=== PATIENT | male | born 1970 | race Caucasian/White ===

== ENCOUNTER 2023-12-04 14:17 | Inpatient (IN) | payer SELFPAY ==
[2023-12-04] VITALS (16 sets, daily range): BP systolic 169–242; BP diastolic 103–200; PULSE 86–132; RESP 14–22; TEMP 37–37.1; O2SAT 95–100; BMI 38.3
--- NOTE | ~2023-12-04 | MR_ITS ---
EXAMINATION: MR brain/brain stem wo/w con DATE: 12/05/2023 11:53 INDICATION: Cerebrovascular accident. TECHNIQUE: Magnetic resonance imaging (MRI) of the brain and brainstem was performed without and with 20 mL MultiHance intravenous contrast. COMPARISON: Head CT 12/04/2023 FINDINGS: There is an acute infarct in the andi on the left. There are are few scattered foci of old hemorrhage in the brain. There are scattered areas of nonspecific increased T2-weighted signal intens ity in the cerebral white matter. There is no abnormal mass lesion. There is an old infarct involving the andi and left middle cerebellar peduncle. The ventricles are normal in size. There is mild mucos al thickening in the paranasal sinuses. The orbits are normal. The mastoid air cells are normal. IMPRESSION: 1. Acute infarct in the andi on the left. 2. Old infarct involving the andi and left middle cerebellar peduncle. 3. Moderate cerebral white matter disease and scattered foci of old microhemorrhage in the brain, con sistent with chronic hypertensive encephalopathy. Reviewed, dictated and finalized at location A. IMPRESSION: 1. Acute infarct in the andi on the left. 2. Old infarct involving the andi and left middle cerebellar peduncle. 3. Moderate cerebral white matter disease and scattered foci of old microhemorr joe in the brain, consistent with chronic hypertensive encephalopathy.
--- NOTE | ~2023-12-04 | XR_ITS ---
EXAMINATION: XR chest 2V Exam Date/Time: 12/04/2023 15:20 CDT HISTORY: cva Comparison: None. RESULT: Lines, tubes, and devices: None. Lungs and pleura: Clear. Cardiomediastinal silhouette: Unremarkable. Other: No acute osseous or upper abdominal finding. IMPRESSION: No acute cardiopulmonary process. Reviewed, dictated and finalized at location K.
--- NOTE | ~2023-12-04 | CT_ITS ---
EXAMINATION: CTA brain carotid DATE: 12/04/2023 15:49 INDICATION: cva TECHNIQUE: Computed tomographic angiography (CTA) of the head was performed without and with 100 mL O mnipaque-350 intravenous contrast. CTA of the neck was performed with intravenous contrast. Automated exposure control and iterative reconstruction technique were employed. The dose-length product was 1 836.72 mGy-cm. Maximum intensity projection and volume rendered 3D-reconstructions were created by alice badillo technologist on a separate workstation. COMPARISON: None. FINDINGS: CT BRAIN: Hypodensity in the left midbrain extending into the left cerebral peduncle and the inferior aspect of the left thalamus. No acute intracranial hemorrhage, mass, or hydrocephalus. Right frontal sinus opa cification, ethmoid mucosal thickening, nodular/polypoid mucosal thickening in the bilateral maxillar y sinuses. CTA HEAD: No large vessel occlusion, aneurysm, high flow vascular malformation, nidus or extravasation. Severe short segment stenosis in the left P1 posterior cerebral artery segment. Basilar dolichoectasia. Bateman nt cerebral veins. CTA NECK: Aortic arch and proximal great vessels: Atherosclerotic calcifications at the visualized aortic arch and proximal great vessels. Right common carotid, carotid bifurcation, and internal carotid artery: Moderate calcification at the bifurcation and proximal right internal carotid artery.There is 15% stenosis of the proximal right i nternal carotid artery relative to normal distal artery lumen diameter (NASCET criteria). Left common carotid, carotid bifurcation, and internal carotid artery: Mild calcification at the bifu rcation.There is 0% stenosis of the proximal left internal carotid artery relative to normal distal a rtery lumen diameter (NASCET criteria). Vertebral arteries: No significant plaque or stenosis. Left vertebral artery is dominant. Other findings: Cervical spondylosis. Atelectasis versus mild edema in the lungs. Mediastinal and lef t cervical lymphadenopathy. IMPRESSION: Findings concerning for focal acute infarct involving the left midbrain, left cerebral peduncle, and inferior left thalamus. Consider MRI of the brain for further evaluation. Short segment severe stenosis in the left P1 EARRINGS FABRICATOR segment. No large vessel intracranial occlusion or a neurysm. No carotid or vertebral artery occlusion, dissection, or significant stenosis. 1.6 cm partially calcified left thyroid nodule, consider outpatient thyroid ultrasound for further ev aluation. Mediastinal and left cervical lymphadenopathy. Reviewed, dictated and finalized at location K. IMPRESSION: Findings concerning for focal acute infarct involving the left midbrain, left c erebral peduncle, and inferior left thalamus. Consider MRI of the brain for fur ther evaluation. Short segment severe stenosis in the left P1 EARRINGS FABRICATOR segment. No large vessel intra cranial occlusion or aneurysm. No carotid or vertebral artery occlusion, dissection, or significant stenosis. 1.6 cm partially calcified left thyroid nodule, consider outpatient thyroid ult rasound for further evaluation. Mediastinal and left cervical lymphadenopathy.
[2023-12-04 14:37] LABS: Glucose Point of Care 86 mg/dl (65-105)
--- NOTE | 2023-12-04 14:44 | ED.NEUROSD ---
HPI - Neuro Symptoms/Deficit General Chief Complaint: Neuro Symptoms/Deficit Stated Complaint: facial droop, slurred speech since Time Seen by Provider: 12/04/23 14:34 History of Present Illness HPI Narrative: Patient is a 53-year-old male who presents ER with stroke-like symptoms. Three days ago he mowed his lawn and then he realized that his right arm was weak. Since then he has had mild slurred speech and facial droop. He went to his in-laws home today and they noticed his symptoms and brought him to the ER to be evaluated. Patient does not have a PCP and does not seek out medical care. He denies any drug use as well as smoking as well as alcohol. No worsening of his symptoms since . Related Data Allergies Allergy/AdvReac Type Severity Reaction Status Date / Time Sulfa (Sulfonamide AdvReac Hives Verified 12/04/23 14:29 Antibiotics) Review of Systems Review of Systems: All systems reviewed & are unremarkable except as noted in HPI and below Constitutional: Constitutional: Reports no additional constitutional complaints ENT: Reports system reviewed and no additional complaints, except as documented Cardiovascular: Cardiovascular: Reports no additional cardiovascular complaints Respiratory: Respiratory: Reports no additional respiratory complaints Gastrointestinal: Gastrointestinal: Reports no additional gastrointestinal complaints Musculoskeletal: Musculoskeletal: Reports no additional musculoskeletal complaints Neurologic: Denies headache(s), Reports focal weakness and Denies numbness Comments: slurred speech PMFSH Past Medical History Medical History (Updated 12/04/23 @ 17:53 by Dung Marinelli MD) Healthy adult male Surgical History Surgical History (Updated 12/04/23 @ 14:57 by Dung Marinelli MD) No history of previous surgery Exam Narrative: GENERAL: Well-appearing, well-nourished, and in no acute distress. HEAD: Normocephalic, atraumatic. EYES: PERRL and EOMI. ENT: Mucous membranes moist. CHEST: Clear to auscultation. No respiratory distress. HEART: Regular rate and rhythm. Normal peripheral pulses. ABDOMEN: Soft, nontender, nondistended. EXTREMITIES: Normal range of motion. No edema. SKIN: Warm, dry, no rash. NEURO: Alert and oriented x3. mild right facial droop, right upper extremity pronator drift as well as mild dysmetria with finger-nose testing. Mild dysarthria. PSYCH: Normal mood and affect. Course Course Emergency Course: Patient and family informed of results. Aggressive blood pressure control with hydralazine 10 mg x 2 and labetalol 10 mg x 1. Discussed case with the adjunct instructor as well as neurology. Patient will be admitted to the hospitalist service. Vital Signs Vital signs: Vital Signs Temperature 98.6 F 12/04/23 14:22 Pulse Rate 98 12/04/23 14:22 Respiratory Rate 16 12/04/23 14:22 Blood Pressure 205/136 H 12/04/23 14:22 Pulse Oximetry 100 12/04/23 14:22 Oxygen Delivery Room Air 12/04/23 14:22 Temperature 98.6 F 12/04/23 14:22 Pulse Rate 101 H 12/04/23 17:31 Respiratory Rate 15 12/04/23 17:01 Blood Pressure 173/118 H 12/04/23 17:31 Pulse Oximetry 95 12/04/23 17:31 Oxygen Delivery Room Air 12/04/23 14:22 MDM - Neuro Symptoms/Deficit Lab Data 12/04/23 14:48 12/04/23 14:48 Labs: Lab Results 12/04/23 12/04/23 Range/Units 14:33 14:48 WBC 8.0 (4.5-10.0) K/mm3 RBC 5.70 (4.6-6.20) M/mm3 Hgb 17.1 (14.0-18.0) g/dL Hct 53.3 H (42.0-52.0) % MCV 93.5 (80-100) fl MCH 30.0 (26-34) pg MCHC 32.1 (32-36) g/dl RDW 13.4 (11.5-14.5) % Plt Count 329 (150-375) k/mm3 MPV 9.5 (7.4-10.4) fl Immature Gran % (Auto) 0.5 (0-0.5) % Neut % (Auto) 69.6 (45.5-73.1) % Lymph % (Auto) 18.4 (18.3-44.2) % Charles % (Auto) 10.5 H (2.6-8.5) % Eos % (Auto) 0.6 (0-4.4) % Baso % (Auto) 0.4 (0.2-1.2) % Lymph #
--- NOTE | 2023-12-04 14:46 | ECG_ITS ---
SEE SCANNED COPY FOR CONFIRMED REPORT. MTDD
[2023-12-04] MEDS: hydrALAZINE HCL 20 MG/ML VIAL 10 MG IV PUSH ×3 (14:52→19:59)
[2023-12-04 14:54] LABS: Basophils Percent Auto 0.4 % (0.2-1.2); Eosinophils Absolute Auto 0.1 K/mm3 (0-0.3); Eosinophils Percent Auto 0.6 % (0-4.4); Hematocrit 53.3 % (42.0-52.0); Hemoglobin 17.1 g/dL (14.0-18.0); Immature Granulocyte Absolute 0.04 K/mm3 (0.00-0.031); Immature Granulocyte Percent A 0.5 % (0-0.5); Lymphocytes Absolute Auto 1.47 K/mm3 (0.9-3.2); Lymphocytes Percent Auto 18.4 % (18.3-44.2); Mean Corpuscular HGB Conc 32.1 g/dl (32-36); Mean Corpuscular Volume 93.5 fl (80-100); Mean Platelet Volume 9.5 fl (7.4-10.4); Monocytes Absolute Auto 0.8 K/mm3 (0.1-0.6); Monocytes Percent Auto 10.5 % (2.6-8.5); Neutrophils Absolute Auto 5.6 K/mm3 (1.3-6.7); Neutrophils Percent Auto 69.6 % (45.5-73.1); Platelet Count Result 329 k/mm3 (150-375); Red Cell Distribution Width 13.4 % (11.5-14.5)
[2023-12-04 15:09] LABS: Alanine Aminotransferase 28 U/L (6-50); Albumin Level 5.4 g/dL (3.5-5.1); Alkaline Phosphatase 68 U/L (38-126); Anion Gap 13 mmol/L (4-12); Aspartate Amino Transferase 31 U/L (17-59); Bilirubin,Total 1.3 mg/dL (0.2-1.3); Blood Urea Nitrogen 16 mg/dL (9-20); Calcium 9.7 mg/dL (8.4-10.2); Carbon Dioxide 26 mmol/L (22-30); Chloride 106 mmol/L (98-107); Estimated CRCL calculation 88 ml/min; Estimated Glomerular Filt Rate > 60; Glucose 95 mg/dL (65-110); Potassium 3.8 mmol/L (3.4-5.0); Prothrombin Time 13.4 Seconds (11.1-14.7); Sodium 145 mmol/L (137-145)
[2023-12-04 15:10] LABS: Partial Thromboplastin Time 26.8 Seconds (22.3-36.8)
[2023-12-04 15:20] LABS: Troponin I < 0.012 ng/mL (0.000-0.034)
[2023-12-04] MEDS: LABETALOL HCL INJ 100 MG/20 ML VIAL 10 MG IV PUSH (16:53)
--- NOTE | 2023-12-04 18:09 | ADMGEN ---
This patient, Chema Guajardo, was admitted to Intensive Care Unit-5 at 1803. Patient/family oriented to hospital policies and general routines including ID bracelet, bed and alarms, visiting hours, pain management, procedures, bathroom and other care routines, personal items, smoking policy, room service/diet, and visiting hours. Information on how to activate the Rapid Response Team has been discussed. Patient/Family are encouraged to report perceived risks to care and to ask questions if they do not understand what they are told or what they should do.
--- NOTE | 2023-12-04 18:27 | PM.IMHP ---
H&P: HPI History of Present Illness Date/Time: 12/04/23 19:10 Chief Complaint: ?Stroke symptoms.? Narrative: This is a pleasant 53-year-old male with no reported medical history who presented to the emergency department via private vehicle for evaluation of ?stroke symptoms.? The patient provides the following history. Tuesday he was working out in the yard when he noticed that his right hand and arm did not seem to be doing what he wanted them to do. He thought perhaps he strained his muscles and he went inside to rest. That evening his friend noticed that his speech seemed to be a slurred which he again attributed to overdoing it while working outside. The symptoms have persisted and when he went to visit his in-laws today they encouraged him to come in for evaluation. He denies headache, vertigo, visual changes, difficulty speaking and swallowing, palpitations, and sensations of racing heart. In the ED: Blood pressures have been as high as 237 over 150. He has been in a sinus rhythm since arrival. CMP and CBC were pretty unremarkable. CT of the head and neck showed findings concerning for focal acute infarcts involving left mid brain, left cerebral peduncle, and inferior left thalamus as well as a short segment of severe stenosis in left P1 AIRCRAFT LANDING GEAR INSPECTOR segment. No large vessel occlusions, dissection, aneurysm or significant stenosis were noted in the carotid, vertebral, or intracranial arteries. Incidentally 1.6 cm partially calcified left thyroid nodule was noted. He was given a total of 20 mg IV hydralazine and 10 mg IV labetalol without much improvement initially however his blood pressure dropped to 169 systolic before rebounding back to 237 systolic. Decision was made to place the patient in the ICU for possible nicardipine drip which could be titrated for a more reliable response. Since that time his blood pressures seem to have improved after receiving another dose of 10 mg IV hydralazine and his systolic blood pressures are now ranging between the 170s to 190s. He complains of a headache at this time which is new. He has no other complaints. Review of Systems Review of Systems: 12 systems were reviewed and are negative except for as per HPI. [facility] Past Medical History Medical History Healthy adult male Surgical History Surgical History No history of previous surgery Family History Family History Father Congestive heart failure Mother Multiple sclerosis Social History Social History Social History: Surrogate medical decision maker: Leeann Choi. Code status: Full code. Smoking status: Never smoker Alcohol intake: current Drinks per week: 3 Substance use: never Do You Feel Safe in your Home?: Yes Lack of Transportation: No Lack of Food: Never True Current Housing: I Do Not Have Housing Concerned About Future Housing: No Difficulty Paying Gas/Electric Bills: No Difficulty Paying for Meds: No Currently Unemployed: No Education: Decline to Answer Difficulty w/ Childcare or Family Care: Decline to Answer Spiritual care concerns: No Meds Home Medications and Allergies Home Medications Medication Instructions Recorded Confirmed Type No Home Medications 12/04/23 12/04/23 History Allergies Allergy/AdvReac Type Severity Reaction Status Date / Time Sulfa (Sulfonamide AdvReac Mild Hives Verified 12/04/23 18:12 Antibiotics) Vital Signs Vital Signs - 24 hr 12/04/23 14:22 12/04/23 15:57 12/04/23 14:58 Temperature 98.6 F Pulse Rate 98 97 111 H Respiratory Rate 16 16 20 Blood Pressure 205/136 H 169/147 H 242/200 H Pulse Oximetry 100 98 100 Oxygen Delivery Room Air 12/04/23 16:27 12/04/23 16:31 12/04/23 16:42 Temperature
--- NOTE | 2023-12-04 18:41 | PC.NURSE ---
Dr. Bailey updated on patient condition, new orders received. Patient and family oriented to room and plan of care.
[2023-12-04 19:44] LABS: MRSA (PCR) NOT DETECTED (NOT DETECTE)
[2023-12-04] MEDS: ACETAMINOPHEN 325 MG TABLET 650 MG PO (21:06)
[2023-12-05] VITALS (18 sets, daily range): BP systolic 148–195; BP diastolic 84–136; PULSE 68–108; RESP 12–20; TEMP 36.2–37.1; O2SAT 97–99
--- NOTE | 2023-12-05 00:12 | ECHO_ITS ---
Patient Info Name: Chema Guajardo Age: 53 years : 1970 Gender: Male Ht: 74 in Wt: 298 lbs BSA: 2.71 m2 HR: 70 bpm Heart Rhythm: Sinus Rhythm Technical Quality: Fair Exam Date: 12/05/2023 8:36 AM Exam Location: Echo Lab Patient Status: Inpatient Admit Date: 12/05/2023 Staff Ordering Physician: Debbie Montesinos PA-C Jig Box Operator: Angela Lema RDCS Attending Provider: Moy Reyes MD Referring Physician: Yamel HARDY; Exam Type: CA echo doppler w bubble study Study Info Indications - Stroke - Hypertensive Emergency Complete two-dimensional, color flow and Doppler transthoracic echocardiogram is performed with agitated saline. Contrast/Agitated Saline Contrast/Ag. Saline: Agitated Saline Amount: 21.00 ml IV Access Condition: patent with no signs of infiltration Summary 1. Left ventricular hypertrophy with hyperdynamic systolic contractility. 2. Grade 1 diastolic noncompliance. 3. No evidence of valvular disease. 4. Saline contrast does not demonstrate any evidence of intracardiac shunting. Left Ventricle Left ventricular chamber dimension is normal. Left ventricular systolic function is hyperdynamic, estimated at >70%. There is moderate concentric increased left ventricular wall thickness. The left ventricular diastolic function is grade I diastolic dysfunction. Right Ventricle Right ventricular chamber dimension is normal. Left Atria Left atrial chamber dimension is normal. Right Atria Right atrial chamber dimension is normal. Atrial Septum Intact interatrial septum visualized by agitated saline imaging. Aortic Valve The aortic valve is normal. Pulmonic Valve The pulmonic valve is not well visualized. Mitral Valve The mitral valve has normal leaflets. Tricuspid Valve The tricuspid valve leaflets are normal. Pericardium/Pleural The pericardium appears normal. Aorta The aortic root size at the sinus of Valsalva is normal. Left Ventricular Outflow Tract Name Value Normal LVOT 2D LVOT Diameter 2.1 cm LVOT Doppler LVOT Peak Gradient 7 mmHg LVOT Mean Gradient 4 mmHg LVOT VTI 23 cm LVOT VTI/AV VTI Ratio 0.9 LVOT Stroke Volume 79 ml LVOT CO 6.4 l/min LVOT CI 2.4 l/min/m2 Pulmonic Valve Name Value Normal RVOT Doppler RVOT Peak Gradient 5 mmHg PV Doppler PV Peak Gradient 9 mmHg Mitral Valve Name Value Normal MV Doppler
[2023-12-05 04:56] LABS: Anion Gap 6 mmol/L (4-12); Blood Urea Nitrogen 17 mg/dL (9-20); Calcium 8.9 mg/dL (8.4-10.2); Carbon Dioxide 25 mmol/L (22-30); Chloride 110 mmol/L (98-107); Cholesterol 221 mg/dL (0-200); Estimated CRCL calculation 93 ml/min; Estimated Glomerular Filt Rate > 60; Glucose 108 mg/dL (65-110); HDL Direct 55 mg/dL; Sodium 141 mmol/L (137-145); Triglycerides 109 mg/dL (<150)
[2023-12-05 05:08] LABS: LDL Cholesterol Direct 131 mg/dL
[2023-12-05 08:27] LABS: Basophils Percent Auto 0.5 % (0.2-1.2); Eosinophils Absolute Auto 0.1 K/mm3 (0-0.3); Eosinophils Percent Auto 1.2 % (0-4.4); Hematocrit 46.5 % (42.0-52.0); Hemoglobin 14.9 g/dL (14.0-18.0); Immature Granulocyte Absolute 0.04 K/mm3 (0.00-0.031); Immature Granulocyte Percent A 0.5 % (0-0.5); Lymphocytes Absolute Auto 1.44 K/mm3 (0.9-3.2); Lymphocytes Percent Auto 17.3 % (18.3-44.2); Mean Corpuscular Hemoglobin 30.2 pg (26-34); Mean Corpuscular Volume 94.1 fl (80-100); Mean Platelet Volume 10.5 fl (7.4-10.4); Monocytes Percent Auto 11.8 % (2.6-8.5); Neutrophils Absolute Auto 5.7 K/mm3 (1.3-6.7); Neutrophils Percent Auto 68.7 % (45.5-73.1); Platelet Count Result 308 k/mm3 (150-375); Red Blood Count 4.94 M/mm3 (4.6-6.20); Red Cell Distribution Width 14.1 % (11.5-14.5); White Blood Count 8.3 K/mm3 (4.5-10.0)
[2023-12-05 08:34] LABS: Magnesium 2.4 mg/dL (1.6-2.3); Phosphorus 4.2 mg/dL (2.5-4.5)
--- NOTE | 2023-12-05 09:11 | WPDCNINT ---
Assessment and Plan Assessment and plan (1) Cerebrovascular accident: Code(s): I63.9 - Cerebral infarction, unspecified Status: Acute Assessment and Plan: Patient presented the ED with complaints of right hand and arm weakness, facial droop along with having some slurring of speech that started on 12/02/2023. Patient had repeated this to Street muscles, and over doing yard work. He was asthma his in-laws to get evaluated in the ER at [facility]. -patient was found to be in hypertensive emergency with blood pressures of 237/150 mmHg -patient was treated with hydralazine and labetalol -CTA head and neck as under -continue aspirin -neurology has been consulted -patient to get an MRI of the brain and brainstem today -lipid panel showed elevated total cholesterol and elevated LDL -continue atorvastatin 12/03: CTA head and neck Findings concerning for focal acute infarct involving the left midbrain, left cerebral peduncle, and inferior left thalamus. Consider MRI of the brain for further evaluation. Short segment severe stenosis in the left P1 TOBACCO STEMMER MACHINE segment. No large vessel intracranial occlusion or aneurysm. No carotid or vertebral artery occlusion, dissection, or significant stenosis. 1.6 cm partially calcified left thyroid nodule, consider outpatient thyroid ultrasound for further evaluation. Mediastinal and left cervical lymphadenopathy. (2) Hypertensive emergency: Code(s): I16.1 - Hypertensive emergency Status: Acute Assessment and Plan: Patient presented with hypertensive emergency is at blood pressures of 237/150 mmHg in the ER, despite treating him with labetalol hydralazine patient's blood pressures remain elevated and patient was transferred to the ICU to be started on nicardipine. Upon arrival to the ICU patient's systolic blood pressures remained under 200, so nicardipine infusion was not started -will maintain SBP 160-180 for now -will add small dose of amlodipine -patient patient does not know if he has history of hypertension, he does not have health insurance so does not see a primary care doctor. - (3) Hyperlipidemia: Code(s): E78.5 - Hyperlipidemia, unspecified Status: Acute Assessment and Plan: Continue statin Plan DVT prophylaxis: SCDs Stress ulcer prophylaxis: Not indicated Nutrition: Heart healthy diet Code Status: Full code Critical Care Time Spent: 47 minutes Due to a high probability of clinically significant, life threatening deterioration, the patient required my highest level of preparedness to intervene emergently and I personally spent this critical care time directly and personally managing the patient. This critical care time included obtaining a history; examining the patient; pulse oximetry; ordering and review of studies; arranging urgent treatment with development of a management plan; evaluation of patient's response to treatment; frequent reassessment; and discussions with other providers. It was exclusive of separately billable procedures and treating other patients and teaching time. Please see Assessment and Plan section and the rest of the note for further information on patient assessment and treatment This dictation may have been done utilizing a voice recognition system. Attempts have been made to correct errors. However, there may be uncorrected grammatical, spelling, and recognitions errors present. Home Health Rn Consult Note Consult date: 12/05/23 Reason for consult: Acute stroke, hypertensive emergency HPI: Chema Guajardo is a 53 year old male healthy individual with no past medical history presented the ED for evaluation of stroke symptoms. 12/02/2023 when he was working out in his yard and notices right hand and arm did not seem to be doing what he wanted them to do. He thought it was probably strained muscle so went inside the house to rest. His friend noticed that his speech seemed slurred which she again attributes to ove
[2023-12-05] MEDS: ACETAMINOPHEN 325 MG TABLET 650 MG PO (09:37)
[2023-12-05] MEDS: amLODIPine BESYLATE 5 MG TABLET PO (09:37)
[2023-12-05] MEDS: ATORVASTATIN 40 MG TABLET 80 MG PO (09:37)
[2023-12-05] MEDS: ASPIRIN 81 MG ENTERIC TABLET PO (09:37)
[2023-12-05] MEDS: hydrALAZINE HCL 20 MG/ML VIAL 10 MG IV PUSH (09:38)
--- NOTE | 2023-12-05 16:36 | PM.IMPN ---
Progress Note: A&P Assessment and Plan (1) Cerebrovascular accident: Code(s): I63.9 - Cerebral infarction, unspecified Status: Acute (2) Hypertensive emergency: Code(s): I16.1 - Hypertensive emergency Status: Acute (3) Left thyroid nodule: Code(s): E04.1 - Nontoxic single thyroid nodule Status: Acute Plan The patient presented to the emergency department for evaluation of stroke-like symptoms including difficulties using the right arm, slurred speech, and right mouth droop since Tuesday. Labs, imaging, EKG, and all reports were personally reviewed. CTA of the head and neck showed 3 areas consistent with infarct. He took aspirin prior to coming to the emergency department . He will be continued on 81 mg aspirin daily along with atorvastatin 80 mg. Lipid profile with LDL 131. Check A1c. Echocardiogram with bubble study with no evidence of intracardiac shunt or thrombus. Grade 1 diastolic dysfunction noted. Neurology consulted . EKG with sinus rhythm continue to monitor telemetry Hypertension significantly elevated likely underlying cause. Permissive hypertension due to acute stroke MRI with pontine stroke. Amlodipine started hydralazine p.r.n. Left thyroid nodule TSH normal workup as an outpatient basis DVT prophylaxis Lovenox Code status full code Subjective Date/time seen: 12/05/23 16:36 Interval history: patient working with therapy this a.m.. Feels better right-sided weakness has improved. No vision problem. Review of Systems Review of Systems: All systems reviewed & are unremarkable except as noted in HPI and below Exam Narrative: General: Pleasant gentleman in no acute distress HEENT:? pupils equal and reactive, sclera is clear, moist oral mucosa Neck:? Supple Respiratory: Clear to auscultation bilaterally, no wheezing, adequate air entry Cardiac:? S1-S2 normal, regular rate and rhythm Abdomen:? Soft, nontender, nondistended, normoactive bowel sounds Extremities:? No edema, palpable pedal pulses Neuro:? Patient is awake, alert, oriented x3, strength 5 out of out of 5 in the bilateral upper extremity and left lower extremity. Right lower extremity strength is 4/5 Skin:? No lesions noted, warm and dry Psych:? Normal mentation and affect Objective Data Vital Signs Vital Signs: Vital Signs - 24 hr 12/04/23 16:42 12/04/23 16:46 12/04/23 17:01 Temperature Pulse Rate 130 H 132 H 101 H Respiratory Rate 20 21 H 15 Blood Pressure 200/138 H 184/148 H 187/136 H Pulse Oximetry 98 96 98 Oxygen Delivery 12/04/23 17:31 12/04/23 18:20 12/04/23 20:00 Temperature 98.7 F Pulse Rate 101 H 86 108 H Respiratory Rate 18 22 H Blood Pressure 173/118 H 184/126 H 194/126 H Pulse Oximetry 95 97 98 Oxygen Delivery 12/04/23 20:00 12/04/23 20:30 12/04/23 20:00 Temperature Pulse Rate 108 H 107 H 106 H Respiratory Rate 19 Blood Pressure 183/110 H Pulse Oximetry 96 97 Oxygen Delivery Room Air 12/04/23 21:00 12/04/23 22:00 12/04/23 22:00 Temperature Pulse Rate 99 99 97 Respiratory Rate 14 Blood Pressure 178/110 H 193/103 H Pulse Oximetry 98 Oxygen Delivery 12/04/23 23:00 12/04/23 23:22 12/05/23 00:00 Temperature 98.5 F Pulse Rate 96 91 99 Respiratory Rate 18 22 H 16 Blood Pressure 188/110 H 172/107 H Pulse Oximetry 97 96 97 Oxygen Delivery Room Air 12/05/23 00:00 12/05/23 01:00 12/05/23 02:00 Temperature Pulse Rate 92 86 90 Respiratory Rate 17 Blood Pressure 152/84 H Pulse Oximetry 98 Oxygen Delivery 12/05/23 02:00 12/05/23 03:26 12/05/23 03:28 Temperature Pulse Rate 90 82 77 Respiratory Rate 17 15 Blood Pressure 186/118 H 168/120 H Pulse Oximetry 98 98 Oxygen Delivery Room Air 12/05/23 04:00 12/05/23 04:00 12/05/23 06:00 Temperature Pulse Rate 76 76 71 Respiratory Rate 12 Blood Pressure 151/99 H Pulse Oximetry 99 Oxygen Delivery 12/05/23 06:00
--- NOTE | 2023-12-05 17:18 | PC.NURSE ---
This patient, Chema Guajardo, was transferred to [[facility]] on 12/05/23 at 1718. Personal belongings sent with patient. Report given to [Deepa]. Appropriate documentation sent with patient.
--- NOTE | 2023-12-05 17:49 | PC.NURSE ---
1720- received pt to room 201- pt oriented to room and routines of floor- monitor on SR 80's- denies pain- call light in reach- family at bedside
--- NOTE | 2023-12-05 18:32 | WPDNEURCNPN ---
Assessment and Plan Assessment and plan (1) Acute ischemic vertebrobasilar artery brainstem stroke: Code(s): I63.219 - Cerebral infarction due to unspecified occlusion or stenosis of unspecified vertebral artery; I63.22 - Cerebral infarction due to unspecified occlusion or stenosis of basilar artery Status: Acute Assessment and Plan: MRI of the brain shows an infarct in the left pontine area. Patient had loss of rapid alternating movement of the right hand and also facial weakness on the right side. However this appears to be in supranuclear pattern. There is no other significant abnormalities. MRI of the brain confirmed above finding however there are also several diffuse chronic ischemic type changes noted in both cerebral hemispheres. (2) Hypertension: Code(s): I10 - Essential (primary) hypertension Status: Acute Assessment and Plan: This requires continued monitoring and control with appropriate treatment. Plan 1. Patient should be treated with dual antiplatelets and statin for now and also treatment of the blood pressure with appropriate medications and avoid any hypotension. 2. Continue referred for physical therapy and stroke education Consult date: 12/05/23 HPI: Chema Guajardo is a 53 year old male with history onset of weakness of the right hand and some weakness of the face and slurring of the speech started last Tuesday. However patient did not seek any immediate help and they tried to tough it out at home. Finally came to the hospital 2 days later and was found to have evidence of a stroke in the brainstem area. He has made some recovery from the weakness. CT angiogram of the head and neck did not show any large vessel occlusion however he was found to have a critical narrowing of the left posterior cerebral artery in the P1 segment. No history of previous stroke. 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 His was present the time of evaluation. His grandfather had a stroke at age 59. Patient denies any headache or diplopia or difficulty speech or swallowing or any weakness in the legs. Review of Systems Constitutional: Constitutional: Denies chills, Denies fever(s) and Denies weight loss Eyes: Eyes: Denies diplopia and Denies loss of vision ENT: Denies dizziness, Denies hearing loss and Denies tinnitus Cardiovascular: Cardiovascular: Denies chest pain, Denies syncope and Denies dyspnea Respiratory: Respiratory: Denies cough, Denies dyspnea and Denies wheezing Gastrointestinal: Gastrointestinal: Denies abdominal pain, Denies change in bowel habits and Denies vomiting Genitourinary: Genitourinary: Denies urinary incontinence Musculoskeletal: Musculoskeletal: Denies arthralgias and Denies joint swelling Integumentary/Breasts: Skin/Breast: Denies new lesions and Denies rash Neurologic: Reports as per HPI, Denies dizziness, Denies syncope and Denies loss of vision Psychiatric: Psychiatric: Denies anxiety and Denies depression Endocrine: Endocrine: Denies cold intolerance and Denies heat intolerance Hematologic/Lymphatic: Hematologic/Lymphatic: Denies easy bleeding and Denies easy bruising Allergic/Immunologic: Allergic/Immunologic: Denies no additional allergic/immunologic complaints and Denies wheezing PMFSH Past Medical History Medical History (Updated 12/05/23 @ 18:36 by Luis Gray MD) Acute ischemic vertebrobasilar artery brainstem stroke Healthy adult male Hypertension Surgical History Surgical History No history of previous surgery Family History Family History Father Congestive heart failure Mother Multiple sclerosis Social History Social History Social History: Surrogate medical decision m
[2023-12-06] VITALS (18 sets, daily range): BP systolic 143–189; BP diastolic 95–117; PULSE 61–108; RESP 16–24; TEMP 36.1–38.2; O2SAT 98–100
[2023-12-06 04:56] LABS: Basophils Percent Auto 0.6 % (0.2-1.2); Eosinophils Absolute Auto 0.1 K/mm3 (0-0.3); Eosinophils Percent Auto 1.9 % (0-4.4); Hematocrit 45.8 % (42.0-52.0); Hemoglobin 14.8 g/dL (14.0-18.0); Immature Granulocyte Absolute 0.04 K/mm3 (0.00-0.031); Immature Granulocyte Percent A 0.6 % (0-0.5); Lymphocytes Absolute Auto 1.46 K/mm3 (0.9-3.2); Lymphocytes Percent Auto 21.3 % (18.3-44.2); Mean Corpuscular HGB Conc 32.3 g/dl (32-36); Mean Corpuscular Hemoglobin 30.2 pg (26-34); Mean Corpuscular Volume 93.5 fl (80-100); Monocytes Absolute Auto 0.9 K/mm3 (0.1-0.6); Neutrophils Absolute Auto 4.3 K/mm3 (1.3-6.7); Neutrophils Percent Auto 62.6 % (45.5-73.1); Platelet Count Result 264 k/mm3 (150-375); White Blood Count 6.9 K/mm3 (4.5-10.0)
[2023-12-06 05:10] LABS: Alanine Aminotransferase 20 U/L (6-50); Albumin Level 4.3 g/dL (3.5-5.1); Alkaline Phosphatase 52 U/L (38-126); Anion Gap 7 mmol/L (4-12); Aspartate Amino Transferase 22 U/L (17-59); Bilirubin,Total 1.3 mg/dL (0.2-1.3); Blood Urea Nitrogen 20 mg/dL (9-20); Calcium 9.1 mg/dL (8.4-10.2); Carbon Dioxide 25 mmol/L (22-30); Chloride 109 mmol/L (98-107); Estimated CRCL calculation 101 ml/min; Estimated Glomerular Filt Rate > 60; Glucose 102 mg/dL (65-110); Magnesium 2.2 mg/dL (1.6-2.3); Potassium 3.7 mmol/L (3.4-5.0); Sodium 141 mmol/L (137-145)
[2023-12-06] MEDS: hydrALAZINE HCL 20 MG/ML VIAL 10 MG IV PUSH (06:09)
[2023-12-06] MEDS: ATORVASTATIN 40 MG TABLET 80 MG PO (07:45)
[2023-12-06] MEDS: ASPIRIN 81 MG ENTERIC TABLET PO (07:46)
[2023-12-06] MEDS: CLOPIDOGREL BISULFATE 75 MG TABLET PO (07:46)
[2023-12-06] MEDS: amLODIPine BESYLATE 5 MG TABLET PO ×2 (07:46→17:01)
--- NOTE | 2023-12-06 13:02 | WPDNEUROPN ---
Subjective Date/time seen: 12/06/23 13:02 Interval history: 53 years old right-handed male seen initially by Dr. Mcmahon for the complaints of weakness in his right upper extremity and right side of the face in addition to the slurred speech and subsequent findings of normal routine lab, cholesterol of 221 with LDL 131 and HDL 55, echocardiogram with left ventricular hypertrophy and grade 1 diastolic noncompliance but no evidence of valvular disease and no evidence of intracardiac shunting on saline contrast, head and neck CTA documented short-segment severe stenosis in left PI [employer] segment no carotid or vertebral artery occlusion or dissection but additionally 1.6cm partially calcified left thyroid nodule and mediastinal and left cervical lymphadenopathy, brain MRI documenting acute infarct in the nadi on the left side along with the old infarct involving the andi and left middle cerebellar peduncle, patient receiving aspirin 81mg daily which will be continued for long time, clopidogrel 75mg daily for the next 3 weeks atorvastatin 80mg daily for the long duration in addition to the physical therapy and ongoing streak Education and also follow-up by the family physician. I went over with all the investigation with him again and enforce the idea of taking the medication as such and he can be discharged with all the instructions as such. Objective Data Vital Signs Vital Signs: Vital Signs - 24 hr 12/05/23 14:00 12/05/23 15:59 12/05/23 16:05 Temperature 37.1 C Pulse Rate 97 102 H Respiratory Rate 18 Blood Pressure 161/113 H Pulse Oximetry 99 Oxygen Delivery Room Air 12/05/23 16:00 12/05/23 17:26 12/05/23 20:16 Temperature 36.6 C 36.2 C L Pulse Rate 97 100 100 Respiratory Rate 18 18 Blood Pressure 155/97 H 148/108 H Pulse Oximetry 99 98 Oxygen Delivery 12/05/23 20:00 12/05/23 20:00 12/05/23 22:00 Temperature Pulse Rate 105 H 68 Respiratory Rate Blood Pressure Pulse Oximetry Oxygen Delivery Room Air 12/06/23 00:00 12/06/23 00:00 12/06/23 00:00 Temperature 36.1 C L Pulse Rate 74 64 Respiratory Rate 18 Blood Pressure 163/117 H Pulse Oximetry 100 Oxygen Delivery Room Air 12/06/23 02:00 12/06/23 04:00 12/06/23 04:00 Temperature Pulse Rate 63 74 Respiratory Rate Blood Pressure Pulse Oximetry Oxygen Delivery Room Air 12/06/23 05:59 12/06/23 06:00 12/06/23 07:20 Temperature 36.1 C L 37.0 C Pulse Rate 61 77 92 Respiratory Rate 18 16 Blood Pressure 189/115 H 155/95 H Pulse Oximetry 100 98 Oxygen Delivery 12/06/23 08:00 12/06/23 08:00 12/06/23 10:00 Temperature Pulse Rate 95 99 Respiratory Rate Blood Pressure Pulse Oximetry 98 Oxygen Delivery Room Air 12/06/23 11:16 12/06/23 12:00 12/06/23 12:00 Temperature 36.9 C Pulse Rate 95 108 H Respiratory Rate 24 H Blood Pressure 143/101 H Pulse Oximetry 98 Oxygen Delivery Room Air Intake/Output Intake/Output: Intake & Output 12/03/23 12/04/23 12/05/23 12/06/23 23:59 23:59 23:59 23:59 Intake Total 1300 590 Output Total 200 700 1 Balance -200 600 589 Meds/Results Medications: Active Medications Generic Name Dose Route Start Last Admin Trade Name Freq PRN Reason Stop Dose Admin Acetaminophen 650 mg 12/04/23 17:10 12/05/23 09:37 Acetaminophen 325 Mg Tablet PO 650 mg Q4H PRN Administration Mild Pain (1-3) or Fever Amlodipine Besylate 5 mg 12/05/23 09:10 12/06/23 07:46 Amlodipine Besylate 5 Mg Tablet PO 5 mg QAM BATSHEVA Administration Aspirin 81 mg 12/05/23 09:00 12/06/23 07:46 Aspirin 81 Mg Enteric Tablet PO 81 mg QAM BATSHEVA Administration Atorvastatin Calcium 80 mg 12/05/23 09:00 12/06/23 07:45 Atorvastatin 40 Mg Tablet PO 80 mg DAILY BATSHEVA Administration Clopidogrel Bisulfate 75 mg 12/06/23 09:00 12/06/23 07:46 Clopidogrel Bisulfate 75 Mg Tablet PO 75 mg QAM BATSHEVA Administration
--- NOTE | 2023-12-06 14:06 | PM.IMPN ---
Progress Note: A&P Assessment and Plan (1) Cerebrovascular accident: Code(s): I63.9 - Cerebral infarction, unspecified Status: Acute (2) Hypertensive emergency: Code(s): I16.1 - Hypertensive emergency Status: Acute (3) Left thyroid nodule: Code(s): E04.1 - Nontoxic single thyroid nodule Status: Acute Plan The patient presented to the emergency department for evaluation of stroke-like symptoms including difficulties using the right arm, slurred speech, and right mouth droop since Tuesday. Labs, imaging, EKG, and all reports were personally reviewed. CTA of the head and neck showed 3 areas consistent with infarct. He took aspirin prior to coming to the emergency department . He will be continued on 81 mg aspirin daily along with atorvastatin 80 mg. Lipid profile with LDL 131. Echocardiogram with bubble study with no evidence of intracardiac shunt or thrombus. Grade 1 diastolic dysfunction noted. Neurology consulted . EKG with sinus rhythm continue to monitor telemetry Hypertension significantly elevated likely underlying cause. Permissive hypertension due to acute stroke MRI with pontine stroke. Amlodipine started hydralazine p.r.n. received IV p.r.n. this a.m.. Will up titrate amlodipine. Left thyroid nodule TSH normal workup as an outpatient basis DVT prophylaxis Lovenox Code status full code Subjective Date/time seen: 12/06/23 14:06 Interval history: Working with therapy. Doing well. Blood pressure elevated and IV hydralazine given this a.m. Review of Systems Review of Systems: All systems reviewed & are unremarkable except as noted in HPI and below Exam Narrative: General: Pleasant gentleman in no acute distress HEENT:? pupils equal and reactive, sclera is clear, moist oral mucosa Neck:? Supple Respiratory: Clear to auscultation bilaterally, no wheezing, adequate air entry Cardiac:? S1-S2 normal, regular rate and rhythm Abdomen:? Soft, nontender, nondistended, normoactive bowel sounds Extremities:? No edema, palpable pedal pulses Neuro:? Patient is awake, alert, oriented x3, strength 5 out of out of 5 in the bilateral upper extremity and left lower extremity. Right lower extremity strength is 4/5 Skin:? No lesions noted, warm and dry Psych:? Normal mentation and affect Objective Data Vital Signs Vital Signs: Vital Signs - 24 hr 12/05/23 15:59 12/05/23 16:05 12/05/23 16:00 Temperature 98.7 F Pulse Rate 102 H 97 Respiratory Rate 18 Blood Pressure 161/113 H Pulse Oximetry 99 Oxygen Delivery Room Air 12/05/23 17:26 12/05/23 20:16 12/05/23 20:00 Temperature 97.9 F 97.2 F L Pulse Rate 100 100 105 H Respiratory Rate 18 18 Blood Pressure 155/97 H 148/108 H Pulse Oximetry 99 98 Oxygen Delivery 12/05/23 20:00 12/05/23 22:00 12/06/23 00:00 Temperature 97.0 F L Pulse Rate 68 74 Respiratory Rate 18 Blood Pressure 163/117 H Pulse Oximetry 100 Oxygen Delivery Room Air 12/06/23 00:00 12/06/23 00:00 12/06/23 02:00 Temperature Pulse Rate 64 63 Respiratory Rate Blood Pressure Pulse Oximetry Oxygen Delivery Room Air 12/06/23 04:00 12/06/23 04:00 12/06/23 05:59 Temperature 97.0 F L Pulse Rate 74 61 Respiratory Rate 18 Blood Pressure 189/115 H Pulse Oximetry 100 Oxygen Delivery Room Air 12/06/23 06:00 12/06/23 07:20 12/06/23 08:00 Temperature 98.6 F Pulse Rate 77 92 95 Respiratory Rate 16 Blood Pressure 155/95 H Pulse Oximetry 98 Oxygen Delivery 12/06/23 08:00 12/06/23 10:00 12/06/23 11:16 Temperature 98.4 F Pulse Rate 99 95 Respiratory Rate 24 H Blood Pressure 143/101 H Pulse Oximetry 98 98 Oxygen Delivery Room Air 12/06/23 12:00 12/06/23 12:00 Temperature Pulse Rate 108 H Respiratory Rate Blood Pressure Pulse Oximetry Oxygen Delivery Room Air Intake/Output Intake/Output: Intake & Output 12/03/23 12/04/23 12/05/23
[2023-12-07] VITALS (13 sets, daily range): BP systolic 146–178; BP diastolic 93–114; PULSE 68–114; RESP 16–18; TEMP 36.6–37; O2SAT 96–99
[2023-12-07] MEDS: hydrALAZINE HCL 20 MG/ML VIAL 10 MG IV PUSH (08:46)
[2023-12-07] MEDS: ATORVASTATIN 40 MG TABLET 80 MG PO (08:46)
[2023-12-07] MEDS: CLOPIDOGREL BISULFATE 75 MG TABLET PO (08:46)
[2023-12-07] MEDS: amLODIPine BESYLATE 5 MG TABLET PO ×2 (08:46→18:03)
[2023-12-07] MEDS: ASPIRIN 81 MG ENTERIC TABLET PO (08:46)
[2023-12-07] MEDS: hydroCHLOROthiazide 25 MG TABLET PO (15:15)
[2023-12-07] MEDS: lisinopriL 10 MG TABLET PO (15:15)
[2023-12-07] MEDS: cloNIDine HCL 0.1 MG TABLET PO (15:16)
--- NOTE | 2023-12-07 18:11 | PM.IMPN ---
Progress Note: A&P Assessment and Plan (1) Cerebrovascular accident: Code(s): I63.9 - Cerebral infarction, unspecified Status: Acute Assessment and Plan: Neurology: complaints of weakness in his right upper extremity and right side of the face in addition to the slurred speech and subsequent findings of normal routine lab, cholesterol of 221 with LDL 131 and HDL 55, Echocardiogram with left ventricular hypertrophy and grade 1 diastolic noncompliance but no evidence of valvular disease and no evidence of intracardiac shunting on saline contrast, Head and neck CTA documented short-segment severe stenosis in left PI [employer] segment no carotid or vertebral artery occlusion or dissection but additionally 1.6cm partially calcified left thyroid nodule and mediastinal and left cervical lymphadenopathy, Brain MRI documenting acute infarct in the andi on the left side along with the old infarct involving the andi and left middle cerebellar peduncle, Rx: Aspirin 81mg daily which will be continued for long time, clopidogrel 75mg daily for the next 3 weeks atorvastatin 80mg daily for the long duration in addition to the physical therapy and ongoing streak Education and also follow-up by the family physician.?? (2) Hypertensive emergency: Code(s): I16.1 - Hypertensive emergency Status: Acute Assessment and Plan: 12/07/23: Added Clonidine, Amlodipine and Lisinopril (3) Left thyroid nodule: Code(s): E04.1 - Nontoxic single thyroid nodule Status: Acute Plan The patient presented to the emergency department for evaluation of stroke-like symptoms including difficulties using the right arm, slurred speech, and right mouth droop since Tuesday. Labs, imaging, EKG, and all reports were personally reviewed. CTA of the head and neck showed 3 areas consistent with infarct. He took aspirin prior to coming to the emergency department . He will be continued on 81 mg aspirin daily along with atorvastatin 80 mg. Lipid profile with LDL 131. Echocardiogram with bubble study with no evidence of intracardiac shunt or thrombus. Grade 1 diastolic dysfunction noted. Neurology consulted . EKG with sinus rhythm continue to monitor telemetry Hypertension significantly elevated likely underlying cause. Permissive hypertension due to acute stroke MRI with pontine stroke. Amlodipine started hydralazine p.r.n. received IV p.r.n. this a.m.. Will up titrate amlodipine. Left thyroid nodule TSH normal workup as an outpatient basis DVT prophylaxis Lovenox Code status full code Time Spent With Patient Time with patient: 25 - 35 minutes Subjective Date/time seen: 12/07/23 18:11 Interval history: Working with therapy. Doing well. Blood pressure elevated and IV hydralazine given this a.m. : Seen and examined; being managed for hypertensive urgency Review of Systems Review of Systems: 12 systems were reviewed and are negative except for as per HPI. All systems reviewed & are unremarkable except as noted in HPI and below Exam Narrative: General: Pleasant gentleman in no acute distress HEENT:? pupils equal and reactive, sclera is clear, moist oral mucosa Neck:? Supple Respiratory: Clear to auscultation bilaterally, no wheezing, adequate air entry Cardiac:? S1-S2 normal, regular rate and rhythm Abdomen:? Soft, nontender, nondistended, normoactive bowel sounds Extremities:? No edema, palpable pedal pulses Neuro:? Patient is awake, alert, oriented x3, strength 5 out of out of 5 in the bilateral upper extremity and left lower extremity. Right lower extremity strength is 4/5 Skin:? No lesions noted, warm and dry Psych:? Normal mentation and affect Objective Data Vital Signs Vital Signs: Vital Signs - 24 hr 12/06/23 20:00 12/06/23 20:00 12/06/23 22:00 Temperature Pulse Rate 81 71 Respiratory Rate Blood Pressure Pulse Oximetry Oxygen Delivery Room Air 12/06/23 23:48 12/07/23
--- NOTE | 2023-12-07 22:13 | PC.NURSE ---
This patient, Chema Guajardo, was transferred to [ [id number]] on 12/07/23 at 2226. Personal belongings sent with patient. Report given to [ Georgina ALONZO]. Appropriate documentation sent with patient.
--- NOTE | 2023-12-07 23:21 | PC.NURSE ---
This patient, Chema Guajardo, was received from [[facility] ] on 12/07/23 at 2221. Patient/family oriented to unit policies and routines
[2023-12-08] VITALS: PULSE 63
[2023-12-08 04:00] VITALS: PULSE 91
[2023-12-08 06:00] VITALS: BP 156/116; PULSE 83; RESP 20; TEMP 36.6; O2SAT 98
[2023-12-08 06:05] LABS: Basophils Percent Auto 0.6 % (0.2-1.2); Eosinophils Absolute Auto 0.2 K/mm3 (0-0.3); Eosinophils Percent Auto 2.1 % (0-4.4); Hematocrit 45.8 % (42.0-52.0); Hemoglobin 14.6 g/dL (14.0-18.0); Immature Granulocyte Absolute 0.03 K/mm3 (0.00-0.031); Immature Granulocyte Percent A 0.4 % (0-0.5); Lymphocytes Absolute Auto 1.47 K/mm3 (0.9-3.2); Lymphocytes Percent Auto 20.2 % (18.3-44.2); Mean Corpuscular HGB Conc 31.9 g/dl (32-36); Mean Corpuscular Hemoglobin 30.3 pg (26-34); Mean Platelet Volume 9.9 fl (7.4-10.4); Monocytes Absolute Auto 0.9 K/mm3 (0.1-0.6); Monocytes Percent Auto 12.4 % (2.6-8.5); Neutrophils Absolute Auto 4.7 K/mm3 (1.3-6.7); Neutrophils Percent Auto 64.3 % (45.5-73.1); Platelet Count Result 282 k/mm3 (150-375); Red Blood Count 4.82 M/mm3 (4.6-6.20); Red Cell Distribution Width 13.8 % (11.5-14.5); White Blood Count 7.3 K/mm3 (4.5-10.0)
[2023-12-08 06:10] LABS: Alanine Aminotransferase 21 U/L (6-50); Albumin Level 4.2 g/dL (3.5-5.1); Alkaline Phosphatase 48 U/L (38-126); Anion Gap 7 mmol/L (4-12); Aspartate Amino Transferase 26 U/L (17-59); Bilirubin,Total 1.1 mg/dL (0.2-1.3); Blood Urea Nitrogen 20 mg/dL (9-20); Calcium 8.9 mg/dL (8.4-10.2); Carbon Dioxide 26 mmol/L (22-30); Chloride 106 mmol/L (98-107); Estimated CRCL calculation 95 ml/min; Estimated Glomerular Filt Rate > 60; Glucose 98 mg/dL (65-110); Potassium 3.9 mmol/L (3.4-5.0); Sodium 139 mmol/L (137-145)
[2023-12-08 08:04] VITALS: PULSE 79
[2023-12-08] MEDS: ATORVASTATIN 40 MG TABLET 80 MG PO (08:24)
[2023-12-08] MEDS: ASPIRIN 81 MG ENTERIC TABLET PO (08:24)
[2023-12-08] MEDS: CLOPIDOGREL BISULFATE 75 MG TABLET PO (08:24)
[2023-12-08] MEDS: lisinopriL 10 MG TABLET PO (08:24)
[2023-12-08] MEDS: amLODIPine BESYLATE 5 MG TABLET 10 MG PO (08:24)
[2023-12-08] MEDS: hydroCHLOROthiazide 25 MG TABLET PO (08:25)
--- NOTE | 2023-12-08 10:18 | WPDNEUROPN ---
Progress Note: A&P Assessment and Plan (1) Acute ischemic vertebrobasilar artery brainstem stroke: Code(s): I63.219 - Cerebral infarction due to unspecified occlusion or stenosis of unspecified vertebral artery; I63.22 - Cerebral infarction due to unspecified occlusion or stenosis of basilar artery Status: Acute (2) Hypertension: Code(s): I10 - Essential (primary) hypertension Status: Acute (3) Hyperlipidemia: Code(s): E78.5 - Hyperlipidemia, unspecified Status: Acute Plan Mr. Guajardo is a 53 year old male with HTN ahd HLD currently admitted due to stroke involving the L andi and L middle cerebellar peduncle in the setting of L P1 segment stenosis. Etiology of stroke is large vessel disease. Less likely, but given age less than 55, will also need to consider hypercoagulability work-up. - Continue Aspirin 81mg daily - Plavix 75mg x 3 months - Continue Lipitor 80mg daily (goal LDL is <70) - Check HgbA1c - Ok to slowly normalize BP Subjective Date/time seen: 12/08/23 10:18 Interval history: Mr. Guajardo is a 53 year old male with no significant past medical history who is currently admitted due to stroke. His presenting symptoms were RUE ataxia, speech slurring. He presented outside the window for any thrombolytic therapy. In the ER BP was as high as 237/150. EKG showed sinus rhythm. CT head showed findings suggestive of acute infarcts in the L andi and L cerebellar peduncle. CTA brain/carotid showed short segment stenosis of the L P1 segment of [employer]. No large vessel occlusion or carotid arterial stenosis. MRI brain confirmed stroke in the L andi and L middle cerebellar peduncle. His LDL is 131. He has been started on DAPT and Lipitor 80mg daily. His echo was negative for shunt. BP has improved and was in the 140-150s systolic in the past day. Patient reports feeling better. He thinks his weakness on the right side is much better. His speech is still not at baseline. Review of Systems Review of Systems: All systems reviewed & are unremarkable except as noted in HPI and below Exam Const: General: no acute distress and well nourished Nutritional Appearance: well nourished HENMT: Head: normocephalic and atraumatic Ears: hearing grossly normal bilaterally and external ears normal Face/Nose/Sinus: Normal external nose present and normal facial exam Face and sinus: normal facial exam Mouth: Yes Normal oral and palatal mucosa present Eyes: General: appearance normal, both eyes and all related structures Eyelids: eyelids normal Conjunctivae: conjunctivae normal Pupils: Equal, round and reactive pupils present EOM: EOMs intact bilaterally Resp: Effort & Inspection: normal respiratory effort Skin: General skin exam: normal color and no rashes or lesions noted Neuro: Cranial nerves: Yes Equal, round and reactive pupils present and Yes Bilaterally intact EOM present Cognition (Neuro): normal cognition Motor exam (neuro): Motor abnormalities not present Sensory Exam: normal sensation Other: R facial droop RUE strength is 4+/5, LUE 5/5 bilateral lower extremity strength is 5/5 very mild dysmetria with FNF on the right, normal on the left. Extrem: General: normal to inspection Psych: Appearance: grossly normal Mental Status: mental status grossly normal Affect: normal affect Attitude: cooperative Objective Data Vital Signs Vital Signs: Vital Signs - 24 hr 12/07/23 12:00 12/07/23 12:00 12/07/23 14:00 Temperature 36.8 C Pulse Rate 108 H 109 H 112 H Respiratory Rate 16 Blood Pressure 171/110 H Pulse Oximetry 99 Oxygen Delivery 12/07/23 16:00 12/07/23 16:00 12/07/23 18:06 Temperature 37.0 C Pulse Rate 113 H 102 H Respiratory Rate 18 Blood Pressure 167/114 H 156/108 H Pulse Oximetry 96 Oxygen Delivery 12/07/23 18:00 12/07/23 20:00 12/07/23 20:00 Temperature 36.6 C Pulse Rate 93 84 Respiratory Rate 16 Blood Pressure 146/93 H Pul
[2023-12-08 11:34] VITALS: BP 148/102; PULSE 92
[2023-12-08 12:05] VITALS: PULSE 83
--- NOTE | 2023-12-08 13:07 | PM.DS ---
DS: Admitting Diagnosis Discharge Date 12/08/23 Admitting Diagnosis 1. Hypertensive emergency 2. CVA DS: Discharge Diagnosis Discharge Diagnosis (1) Cerebrovascular accident: Code(s): I63.9 - Cerebral infarction, unspecified Status: Acute Assessment and Plan: Neurology: complaints of weakness in his right upper extremity and right side of the face in addition to the slurred speech and subsequent findings of normal routine lab, cholesterol of 221 with LDL 131 and HDL 55, Echocardiogram with left ventricular hypertrophy and grade 1 diastolic noncompliance but no evidence of valvular disease and no evidence of intracardiac shunting on saline contrast, Head and neck CTA documented short-segment severe stenosis in left PI [employer] segment no carotid or vertebral artery occlusion or dissection but additionally 1.6cm partially calcified left thyroid nodule and mediastinal and left cervical lymphadenopathy, Brain MRI documenting acute infarct in the andi on the left side along with the old infarct involving the andi and left middle cerebellar peduncle, Rx: Aspirin 81mg daily which will be continued for long time, clopidogrel 75mg daily for the next 3 weeks atorvastatin 80mg daily for the long duration in addition to the physical therapy and ongoing streak Education and also follow-up by the family physician.?? (2) Hypertensive emergency: Code(s): I16.1 - Hypertensive emergency Status: Acute Assessment and Plan: 12/07/23: Added Clonidine, Amlodipine and Lisinopril (3) Left thyroid nodule: Code(s): E04.1 - Nontoxic single thyroid nodule Status: Acute Plan The patient presented to the emergency department for evaluation of stroke-like symptoms including difficulties using the right arm, slurred speech, and right mouth droop since Tuesday. Labs, imaging, EKG, and all reports were personally reviewed. 1. Hypertensive emergency 2. CVA CTA of the head and neck showed 3 areas consistent with infarct. He took aspirin prior to coming to the emergency department . He will be continued on 81 mg aspirin daily along with atorvastatin 80 mg. Lipid profile with LDL 131. Echocardiogram with bubble study with no evidence of intracardiac shunt or thrombus. Grade 1 diastolic dysfunction noted. Neurology consulted . EKG with sinus rhythm continue to monitor telemetry Hypertension significantly elevated likely underlying cause. Permissive hypertension due to acute stroke MRI with pontine stroke. Amlodipine started hydralazine p.r.n. received IV p.r.n. this a.m.. Will up titrate amlodipine. Left thyroid nodule TSH normal workup as an outpatient basis DVT prophylaxis Lovenox Code status full code DS: Summary Hospital Course Reason for hospitalization: 1. Stroke-like symptoms 2. Hypertension Hospital Course: Chief Complaint: ?Stroke symptoms.? Narrative: This is a pleasant 53-year-old male with no reported medical history who presented to the emergency department via private vehicle for evaluation of ?stroke symptoms.? The patient provides the following history. Tuesday he was working out in the yard when he noticed that his right hand and arm did not seem to be doing what he wanted them to do. He thought perhaps he strained his muscles and he went inside to rest. That evening his friend noticed that his speech seemed to be a slurred which he again attributed to overdoing it while working outside. The symptoms have persisted and when he went to visit his in-laws today they encouraged him to come in for evaluation. He denies headache, vertigo, visual changes, difficulty speaking and swallowing, palpitations, and sensations of racing heart. In the ED: Blood pressures have been as high as 237 over 150. He has been in a sinus rhythm since arrival. CMP and CBC were pretty unremarkable. CT of the head and neck showed findings concerning for focal acute infarcts involving left mid brain, left cerebral peduncle
[2023-12-08 14:10] LABS: CRP < 0.5 mg/dL (<1.0)
[2023-12-09 12:08] LABS: Homocysteine 18.1 umol/L (<11.4)
[2023-12-11 03:38] LABS: Anti Cardio Antibody IgM <2.0 MPL-U/mL; Anti Cardiolipin Antibody IgA <2.0 APL-U/mL; Anti Cardiolipin Antibody IgG <2.0 GPL-U/mL
[2023-12-13 04:58] LABS: APC Ratio 5.1 ratio (>=2.1)
[2023-12-13 19:48] LABS: Lupus dRVVT Screen 45 sec (< OR = 45); PTT-LA Screen 35 sec (< OR = 40)
[2023-12-14 17:19] LABS: Lipoprotein A <10 nmol/L
[2023-12-14 17:54] LABS: Factor VIII Activity 80 % normal (50-180)
[2023-12-17 18:49] LABS: Factor V (Leiden) Mutation NEGATIVE
[2023-12-26 13:38] LABS: Phosphatidylserine IgG 14
[2023-12-26 13:39] LABS: Phosphatidylserine IgM <9
== END 2023-12-08 14:50 | disposition home or self-care (01) | DRG 45 ==
LOC: ANHED 14:55 → ANHICU 17:38 → ANHIMU 12-05 17:17 → ANH3MED 12-07 22:47
PROVIDERS: Internal Medicine; Physician Assistant; Student in an Organized Health Care Education/Training Program; Admitting Provider Internal Medicine; Emergency Provider Emergency Medicine; Visit Provider Internal Medicine
DX: I63.22 Cerebral infarction due to unspecified occlusion or stenosis of basilar artery (principal); I16.1 Hypertensive emergency; G81.91 Hemiplegia, unspecified affecting right dominant side; R47.81 Slurred speech; R29.705 NIHSS score 5; R29.810 Facial weakness; E04.1 Nontoxic single thyroid nodule; E78.5 Hyperlipidemia, unspecified; I10 Essential (primary) hypertension
CPT/HCPCS: 36415; 70496; 70498; 70553; 71046; 80048; 80053; 80061; 81240; 81241; 81291; 82948; 83090; 83695; 83735; 84100; 84443; 84484; 85025; 85240; 85250; 85260; 85300; 85303; 85306; 85307; 85380; 85610; 85613; 85730; 86140; 86147; 87641; 93005; 93306; 96374; 96375; 96376; 97110; 97161; 97165; 97530; 99285; A9270; A9577; G0378; J0360; Q9967